=== PATIENT | male | born 1935 | race Two or more races ===

== ENCOUNTER 2016-12-07 15:35 | Emergency (ER) | payer OTHER ==
[~2016-12-07] VITALS: Ht 182.9 cm; Wt 88.5 kg
[~2016-12-07 15:35] MED LIST: GLYPIZIDE; METFORMIN
[2016-12-07 17:03] VITALS: BP 152/69
== END 2016-12-07 17:35 | disposition home or self-care (01) ==
LOC: ER 15:38
DX: M70.21 Olecranon bursitis, right elbow (principal); E11.9 Type 2 diabetes mellitus without complications
CPT/HCPCS: 73080

== ENCOUNTER 2016-12-09 09:28 | Emergency (ER) | payer OTHER ==
[~2016-12-09] VITALS: Ht 188 cm; Wt 84.1 kg
[2016-12-09 09:38] VITALS: BP 131/73
== END 2016-12-09 12:01 | disposition home or self-care (01) ==
LOC: ER 09:28
DX: M70.31 Other bursitis of elbow, right elbow (principal); E11.9 Type 2 diabetes mellitus without complications; Z79.84 Long term (current) use of oral hypoglycemic drugs